=== PATIENT | female | born 1995 | race Hispanic/Latino ===

== ENCOUNTER 2018-11-13 20:50 | Emergency (ER) | payer MEDICAID, OTHER ==
[2018-11-13] MEDS ORDERED: MORPHINE SULFATE 4 MG/1ML SYG ONE (21:51)
[2018-11-13] MEDS ORDERED: ONDANSETRON ODT 4 MG TAB ONE (21:51)
== END 2018-11-13 22:19 | disposition home or self-care (01) ==
LOC: EDH 20:50
DX: K04.7 Periapical abscess without sinus (principal); K02.9 Dental caries, unspecified
CPT/HCPCS: 99283; J2270